=== PATIENT | male | born 1960 | race Caucasian/White ===

== ENCOUNTER 2024-01-25 07:48 | Outpatient (RCR) | payer BC, SELFPAY | END 2024-01-26 11:20 | disposition home or self-care (01) | LOC: OT 07:48 | PROVIDERS: PCP Family Medicine; Visit Provider Nurse Practitioner Family | DX: M72.0 Palmar fascial fibromatosis [Dupuytren] (principal) | CPT/HCPCS: 97165; 97760 ==